=== PATIENT | male | born 1985 | race African-American/Black ===

== ENCOUNTER 2016-09-02 22:08 | Emergency (ER) | payer SELFPAY ==
--- NOTE | 2016-09-02 23:48 | ERRECORD ---
[facility] EMERGENCY RECORD HPI CELLULITIS (22:25 SHAN) CHIEF COMPLAINT: Patient presents for evaluation of drainage, Patient presents for evaluation of pain, Patient presents for evaluation of pain and swelling in left lower abdomen; has been going on for several days. HISTORIAN: History provided by patient. MECHANISM: Possible mechanism not seen. EXACERBATED BY: Patient's condition exacerbated by nothing. RELIEVED BY: Patient's condition relieved by nothing. ROS (22:26 SHAN) CONSTITUTIONAL: Negative constitutional review of systems, Historian denies chills, denies fever. EYES: Negative eye review of systems. ENT: Negative ears, nose, throat review of systems. CARDIOVASCULAR: Negative cardiovascular review of systems, Historian denies chest pain, denies palpitations. RESPIRATORY: Negative respiratory review of systems, Historian denies cough, denies shortness of breath. GI: Negative gastrointestinal review of systems, Historian denies abdominal pain, denies constipation, denies diarrhea. MUSCULOSKELETAL: Negative musculoskeletal review of systems. SKIN: Historian reports cellulitis, area with some drainage on lower abdominal wall. NEUROLOGIC: Negative neurologic review of systems. ENDOCRINE: Negative endocrine review of systems. HEMO/LYMPHATIC: Normal hematologic/lymphatic system review. PSYCHIATRIC: Negative psychiatric review of systems. NOTES: All other ROS is negative except as listed in HPI. PAST MEDICAL HISTORY MEDICAL HISTORY: No past medical history. (22:15 JDEA) MALE SURGICAL HISTORY: Patient has no surgical history. (22:15 JDEA) PSYCHIATRIC HISTORY: No previous psychiatric history, Notes: DENIES. (22:15 JDEA) SOCIAL HISTORY: Patient denies alcohol use, Patient denies drug use, Patient currently uses tobacco, smokes cigarettes, Lives at home, with family, Patient currently uses tobacco, smokes cigarettes, daily, Patient has smoked for 10 years, STATES WAY LESS THAN HALF A PACK A DAY, Lives at home, with family, Patient denies alcohol use, Patient denies drug use,. (22:15 JDEA) NOTES: I have reviewed and agree with the PMH/PSxH/FamHx/SocHx obtained by the nurse. (22:26 SHAN) KNOWN ALLERGIES NKDA CURRENT MEDICATIONS (22:14 JDEA) &a-1R&a+25V*p+0X*[id number]*c202B*c15G*c2P*p-0X&a-25V&a+1R Name: Mark Dennis : 1985 M31 MedRec: [id number] AcctNum: [id number] Prepared: Sat Sep 02, 2016 22:36 by Interface Page 1 of 3 pMD [facility] EMERGENCY RECORD None VITAL SIGNS (22:13 JDEA) VITAL SIGNS: BP: 139/65, Pulse: 80, Resp: 18, Temp: 98.2 (Oral), Pain: 5, O2 sat: 99 on Room Air, Time: 09/02/2016 22:13. PHYSICAL EXAM (22:26 SHAN) CONSTITUTIONAL: Vital signs reviewed, Patient appears non toxic, Patient alert and oriented to person, place and time, Pt is in no apparent distress. HEAD: Head exam included findings of head atraumatic, normocephalic. EYES: Eye exam included findings of eyelids normal to inspection, Pupils equally round and reactive to light, Extraocular muscles intact. ENT: ENT exam normal, Nose exam normal, no nasal deformity, no bleeding from nares, Pharynx exam normal, Mouth exam normal, mucous membranes moist. NECK: Neck exam included findings of normal range of motion, Trachea midline. RESPIRATORY CHEST: Respiratory and chest exam normal, Breath sounds clear, No wheezing, No rales, Chest exam included findings of chest movement symmetrical, Chest expansion equal. CARDIOVASCULAR: Cardiovascular assessment normal, Cardiovascular exam included findings of heart rate regular rate and rhythm, Heart sounds normal. ABDOMEN MALE: Abdominal exam included findings of abdomen nontender, Bowel sounds normal, no mass, no pulsatile masses, no peritoneal signs, no rigidity, no guarding, no rebound. BACK: Back exam included findings of normal inspection, range of motion normal, no costovertebral angle tenderness. UPPER EXTREMITY: Upper extremity exam included findings of inspection normal, Range of motion normal. LOWER EXTREMITY: Lower extremity exam included findings of inspection normal, Range of motion normal. NEURO: Neuro exam findings include patient oriented to person, place and time, Speech normal, no focal motor deficits, no focal sensory deficits. SKIN: Skin exam included findings of skin warm, dry, and normal in color, area of about 1 cm; ovoid, on left lower abdomen (in area of likely rubbing from his belt buckle) with a small amount of drainage. LYMPHATIC: Lymphatic exam normal. PSYCHIATRIC: Psychiatric exam included findings of patient oriented to person place and time, Normal affect. MEDICATION ADMINISTRATION SUMMARY Drug Name: Levaquin oral, Dose Ordered: 1 tab(s), Route: Oral, Status: Given, Time: 22:30 09/02/2016, Detailed record available in &a-1R&a+25V*p+0X*h1316Z*c202B*c15G*c2P*p-0X&a-25V&a+1R Name: Mark Dennis : 1985 [facility] MedRec: [id number] AcctNum: [id number] Prepared: Sat Sep 02, 2016 22:36 by Interface Page 2 of 3 pMD [facility] EMERGENCY RECORD Medication Service section. PROBLEM LIST No recorded problems DIAGNOSIS (22:24 CANDIDO) FINAL: PRIMARY: cellulitis, abdominal wall. PRESCRIPTION (22:23 SHAN) Cipro tablet: TABLET : 500 mg : ORAL : Quantity: 1 Unit: tab(s) Route: ORAL Schedule: 2 times a day Dispense: 20 Unit: tab(s) May substitute. Refills: No Refills . NOTES: No Refills. DISPOSITION PATIENT: Disposition Type: Discharge, Disposition: *Discharge Home. (22:24 CANDIDO) Patient left the department. (22:33 MICH) Garber: MICH=ANTIONE Reyez, Zina REY=MD Meli, Panfilo &a-1R&a+25V*p+0X*[id number]*c202B*c15G*c2P*p-0X&a-25V&a+1R Name: Mark Dennis : 1985 2 MedRec: [id number] AcctNum: [id number] Prepared: Sat Sep 02, 2016 22:36 by Interface Page 3 of 3 pMD [facility]
--- NOTE | 2016-09-02 23:51 | PICIS ---
[facility] EMERGENCY RECORD TRIAGE (22:14 JDEA) TRIAGE NOTES: pt in, states has a spider bite to left lower ab x 1 week. (22:14 JDEA) PATIENT: NAME: Mark Dennis, AGE: 31, GENDER: male, : Wed 1985, TIME OF GREET: Sat Sep 02, 2016 22:09, PREFERRED LANGUAGE: Bolivian, ETHNICITY: Not or , FALL RISK: NO, ECODE BILLING MAP: [facility], SSN: [id number], Zip Code: [address], KG WEIGHT: 86.18, PHONE: , , , PERSON ID: [id number], PCP: none. (22:14 JDEA) COMPLAINT: skin issue. (22:14 JDEA) ADMISSION: URGENCY: 4 Non Urgent, ADMISSION SOURCE: Home, TRANSPORT: Walk-in, BED: TRIAGE. (22:14 JDEA) IMMUNIZATIONS: Flu vaccine not up to date, Tetanus immunization up to date, Pneumococcal vaccine not up to date. (22:15 JDEA) TRIAGE SCREENING: Patient denies suicidal ideation, Patient denies presence of domestic violence. (22:15 JDEA) PROVIDERS: TRIAGE NURSE: Zina Reyez RN. (22:14 JDEA) VITAL SIGNS: BP 139/65, Pulse 80, Resp 18, Temp 98.2, (Oral), Pain 5, O2 Sat 99, on Room Air, Time 09/02/2016 22:13. (22:13 JDEA) PREVIOUS VISIT ALLERGIES: NKDA. (22:14 JDEA) NKDA. (22:15 JDEA) KNOWN ALLERGIES NKDA CURRENT MEDICATIONS (22:14 JDEA) None VITAL SIGNS (22:13 JDEA) VITAL SIGNS: BP: 139/65, Pulse: 80, Resp: 18, Temp: 98.2 (Oral), Pain: 5, O2 sat: 99 on Room Air, Time: 09/02/2016 22:13. NURSING ASSESSMENT: SKIN (22:15 JDEA) CONSTITUTIONAL: Complex assessment performed, Patient arrives ambulatory, Gait steady, History obtained from patient, Patient appears comfortable, Patient cooperative, Patient alert, Oriented to person, place and time, Skin warm, Skin dry, Skin normal in color, Mucous membranes pink, Mucous membranes moist, Patient complains of skin issue, pt in for complaints of a spider bite to his lower left abdomen times one week, states he was moving wood and did not see an insect, however, states a sharp pain and noted an area similar to an ant bite, states that it progressively became worse and now has pus coming out. PAIN: itching pain, constant, on a scale 0-10 patient rates pain as 5. SKIN: Skin assessment findings include skin warm, Skin dry, Skin normal in color, Notes: area noted with mild redness to lower left abdomen appx size of a quarter, not warm with notable pus with &a-1R&a+25V*p+0X*s8998U*c202B*c15G*c2P*p-0X&a-25V&a+1R Name: Mark Dennis : 1985 M31 MedRec: [id number] AcctNum: [id number] Prepared: Sat Sep 02, 2016 22:36 by Interface Page 1 of 5 pMD [facility] EMERGENCY RECORD firm palpation. ESTELA SCALE: (4) Sensory perception has no impairment, (4) Skin is rarely moist, (4) Patient walks frequently, (4) No mobility limitations, (3) Adequate nutrition, (2) Patient has potential problem moving, Estela Risk Total: 21. NOTES: Patient tolerated procedure well. SAFETY: Side rails up, Cart/Stretcher in lowest position, Family at bedside, Call light within reach, Hospital ID band on. NURSING PROCEDURE: DISCHARGE NOTE (22:32 JDEA) DISCHARGE: Patient discharged to home, ambulating without assistance, family driving, accompanied by other family member, Summary of Care printed/ provided, Patient requested and was provided an electronic copy of Discharge Instructions, Transition record given to patient, Discharge instructions given to patient, Simple or moderate discharge teaching performed, Prescriptions given and instructions on side effects given, Above person(s) verbalized understanding of discharge instructions and follow-up care, Patient treated and evaluated by physician. BELONGINGS: Belongings and valuables with patient at time of discharge include:, Belongings remain with patient. ORDER DETAILS Order Name: Culture & GS, Bacterial/Wound, Status: Active, Time: 22:21 09/02/2016, User: CANDIDO, - Ordered for: MD Garrison Stanley, - Entered by: MD Garrison Stanley - Sat Sep 02, 2016 22:21, - Quantity: 1. MEDICATION ADMINISTRATION SUMMARY Drug Name: Levaquin oral, Dose Ordered: 1 tab(s), Route: Oral, Status: Given, Time: 22:30 09/02/2016, Detailed record available in Medication Service section. MEDICATION SERVICE (22:30 SHAN) Levaquin oral: Order: Levaquin oral (levofloxacin) - Dose: 1 tab(s) : Oral Schedule: Now Ordered by: Panfilo Garrison MD Entered by: Panfilo Garrison MD Sat Sep 02, 2016 22:23 , Acknowledged by: Zina Reyez RN Sat Sep 02, 2016 22:24 Documented as given by: Zina Reeyz, ANTIONE Sat Sep 02, 2016 22:30 Patient, Medication, Dose, Route and Time verified prior to administration. Amount given: 1 tab, Site: Medication administered P.O., Correct patient, time, route, dose and medication confirmed prior to administration, Patient advised of actions and side-effects prior to administration, Allergies confirmed and medications reviewed prior to &a-1R&a+25V*p+0X*s8679M*c202B*c15G*c2P*p-0X&a-25V&a+1R Name: Mark Dennis : 1985 M31 MedRec: [id number] AcctNum: [id number] Prepared: Sat Sep 02, 2016 22:36 by Interface Page 2 of 5 pMD [facility] EMERGENCY RECORD administration, Patient in position of comfort, Side rails up, Cart in lowest position, Family at bedside, Call light in reach. HPI CELLULITIS (22:25 CANDIDO) CHIEF COMPLAINT: Patient presents for evaluation of drainage, Patient presents for evaluation of pain, Patient presents for evaluation of pain and swelling in left lower abdomen; has been going on for several days. HISTORIAN: History provided by patient. MECHANISM: Possible mechanism not seen. EXACERBATED BY: Patient's condition exacerbated by nothing. RELIEVED BY: Patient's condition relieved by nothing. ROS (22:26 SHAN) CONSTITUTIONAL: Negative constitutional review of systems, Historian denies chills, denies fever. EYES: Negative eye review of systems. ENT: Negative ears, nose, throat review of systems. CARDIOVASCULAR: Negative cardiovascular review of systems, Historian denies chest pain, denies palpitations. RESPIRATORY: Negative respiratory review of systems, Historian denies cough, denies shortness of breath. GI: Negative gastrointestinal review of systems, Historian denies abdominal pain, denies constipation, denies diarrhea. MUSCULOSKELETAL: Negative musculoskeletal review of systems. SKIN: Historian reports cellulitis, area with some drainage on lower abdominal wall. NEUROLOGIC: Negative neurologic review of systems. ENDOCRINE: Negative endocrine review of systems. HEMO/LYMPHATIC: Normal hematologic/lymphatic system review. PSYCHIATRIC: Negative psychiatric review of systems. NOTES: All other ROS is negative except as listed in HPI. PAST MEDICAL HISTORY MEDICAL HISTORY: No past medical history. (22:15 JDEA) MALE SURGICAL HISTORY: Patient has no surgical history. (22:15 JDEA) PSYCHIATRIC HISTORY: No previous psychiatric history, Notes: DENIES. (22:15 JDEA) SOCIAL HISTORY: Patient denies alcohol use, Patient denies drug use, Patient currently uses tobacco, smokes cigarettes, Lives at home, with family, Patient currently uses tobacco, smokes cigarettes, daily, Patient has smoked for 10 years, STATES WAY LESS THAN HALF A PACK A DAY, Lives at home, with family, Patient denies alcohol use, Patient denies drug use,. (22:15 JDEA) NOTES: I have reviewed and agree with the PMH/PSxH/FamHx/SocHx obtained by the nurse. (22:26 CANDIDO) PHYSICAL EXAM (22:26 CANDIDO) &a-1R&a+25V*p+0X*t3367O*c202B*c15G*c2P*p-0X&a-25V&a+1R Name: Mark Dennis : 1985 M31 MedRec: [id number] AcctNum: [id number] Prepared: Elijah Sep 02, 2016 22:36 by Interface Page 3 of 5 pMD [facility] EMERGENCY RECORD CONSTITUTIONAL: Vital signs reviewed, Patient appears non toxic, Patient alert and oriented to person, place and time, Pt is in no apparent distress. HEAD: Head exam included findings of head atraumatic, normocephalic. EYES: Eye exam included findings of eyelids normal to inspection, Pupils equally round and reactive to light, Extraocular muscles intact. ENT: ENT exam normal, Nose exam normal, no nasal deformity, no bleeding from nares, Pharynx exam normal, Mouth exam normal, mucous membranes moist. NECK: Neck exam included findings of normal range of motion, Trachea midline. RESPIRATORY CHEST: Respiratory and chest exam normal, Breath sounds clear, No wheezing, No rales, Chest exam included findings of chest movement symmetrical, Chest expansion equal. CARDIOVASCULAR: Cardiovascular assessment normal, Cardiovascular exam included findings of heart rate regular rate and rhythm, Heart sounds normal. ABDOMEN MALE: Abdominal exam included findings of abdomen nontender, Bowel sounds normal, no mass, no pulsatile masses, no peritoneal signs, no rigidity, no guarding, no rebound. BACK: Back exam included findings of normal inspection, range of motion normal, no costovertebral angle tenderness. UPPER EXTREMITY: Upper extremity exam included findings of inspection normal, Range of motion normal. LOWER EXTREMITY: Lower extremity exam included findings of inspection normal, Range of motion normal. NEURO: Neuro exam findings include patient oriented to person, place and time, Speech normal, no focal motor deficits, no focal sensory deficits. SKIN: Skin exam included findings of skin warm, dry, and normal in color, area of about 1 cm; ovoid, on left lower abdomen (in area of likely rubbing from his belt buckle) with a small amount of drainage. LYMPHATIC: Lymphatic exam normal. PSYCHIATRIC: Psychiatric exam included findings of patient oriented to person place and time, Normal affect. EVENTS TRANSFER: Triage to Emergency Triage. (Sat Sep 02, 2016 22:14 JDEA) Emergency Triage to Main ED -05. (22:19 JDEA) Removed from Emergency Main ED -05. (22:33 JDEA) PROBLEM LIST No recorded problems DIAGNOSIS (22:24 SHAN) FINAL: PRIMARY: cellulitis, abdominal wall. &a-1R&a+25V*p+0X*w3173T*c202B*c15G*c2P*p-0X&a-25V&a+1R Name: Mark Dennis : 1985 M31 MedRec: [id number] AcctNum: [id number] Prepared: Sat Sep 02, 2016 22:36 by Interface Page 4 of 5 pMD [facility] EMERGENCY RECORD DISPOSITION PATIENT: Disposition Type: Discharge, Disposition: *Discharge Home. (22:24 CANDIDO) Patient left the department. (:33 MICH) INSTRUCTION (22:25 CANDIDO) DISCHARGE: CELLULITIS. SPECIAL: 1. antibiotic as directed, twice a day 2. clean the wound with peroxide, then place otc antibiotic ointment and a bandaide 3. followup with regular provider in about a week 4. return if condition worsens. PRESCRIPTION (:23 CANDIDO) Cipro tablet: TABLET : 500 mg : ORAL : Quantity: 1 Unit: tab(s) Route: ORAL Schedule: 2 times a day Dispense: 20 Unit: tab(s) May substitute. Refills: No Refills . NOTES: No Refills. IMAGING (:33 MICH) *DISCHARGE INSTRUCTIONS RECEIPT: Image captured from scanner. *SUPPLY CHARGE SHEET: Image captured from scanner. ADMIN (:28 CANDIDO) DIGITAL SIGNATURE: MD Garrison Stanley. Garber: MICH=ANTIONE Reyez, Zina REY=MD Garrison Stanley &a-1R&a+25V*p+0X*s0425P*c202B*c15G*c2P*p-0X&a-25V&a+1R Name: Mark Dennis : 1985 M31 MedRec: [id number] AcctNum: [id number] Prepared: Elijah Sep 02, 2016 22:36 by Interface Page 5 of 5 pMD [facility]
== END 2016-09-02 22:32 | disposition home or self-care (01) ==
LOC: MADERS 22:08
DX: L03.311 Cellulitis of abdominal wall (principal); F17.210 Nicotine dependence, cigarettes, uncomplicated
CPT/HCPCS: 87070; 87205; 99284

== ENCOUNTER 2017-12-02 19:57 | Emergency (ER) | payer SELFPAY ==
[2017-12-02] MEDS ORDERED: Naproxen 500 MG TAB ONE (21:14)
[2017-12-02] MEDS ORDERED: diphenhydrAMINE 25 MG CAP ONE (21:14)
[2017-12-02] MEDS ORDERED: HYDROcodone/Acetaminophen 10/325 mg Tablet ONE (21:14)
[2017-12-02] MEDS ORDERED: Triple Antibiotic Oint 1 GM Packet ONE (21:14)
[2017-12-02] MEDS ORDERED: Cephalexin 500 MG CAP ONE (21:15)
[2017-12-02] MEDS ORDERED: Sulfameth/Trimethoprim DS 800-160mg TAB ONE (21:15)
== END 2017-12-02 21:34 | disposition home or self-care (01) ==
LOC: MADERS 19:57
DX: L03.114 Cellulitis of left upper limb (principal); F17.210 Nicotine dependence, cigarettes, uncomplicated
CPT/HCPCS: 87070; 87205; 99283

== ENCOUNTER 2017-12-06 11:27 | Emergency (ER) | payer SELFPAY ==
[2017-12-06] MEDS ORDERED: Triple Antibiotic Oint 1 GM Packet ONE (13:44)
== END 2017-12-06 13:30 | disposition home or self-care (01) ==
LOC: MADERS 11:27
DX: S50.862A Insect bite (nonvenomous) of left forearm, initial encounter (principal); W57.XXXA Bitten or stung by nonvenomous insect and other nonvenomous arthropods, initial encounter
CPT/HCPCS: 99282